=== PATIENT | male | born 1965 | race Caucasian/White ===

== ENCOUNTER 2018-09-22 22:05 | Inpatient (IN) | payer MEDICARE ==
[~2018-09-22] VITALS: Ht 175.3 cm; Wt 67.4 kg
[2018-09-22] MEDS ORDERED: SODIUM CHLORIDE FLUSH 10ML SYR IVF ONE (23:00)
[2018-09-22] MEDS ORDERED: SODIUM CHLORIDE 0.9% 1,000 ML IV ONE (23:08)
[2018-09-22] MEDS ORDERED: PANTOPRAZOLE 80 MG in SODIUM CHLORIDE 0.9% 100 ML IV SCH (23:08)
[2018-09-22] MEDS ORDERED: OCTREOTIDE 500 MCG in SODIUM CHLORIDE 0.9% 249 ML IV PRN (23:08)
[2018-09-22 23:10] LABS: BASOPHILS # (AUTO) 0.01 x10^3/uL (0-0.1); BASOPHILS % (AUTO) 0 % (0-1); EOSINOPHILS % (AUTO) 0 % (1-7); LYMPHOCYTES # (AUTO) 0.51 x10^3/uL (1-3.4); LYMPHOCYTES % (AUTO) 4 % (22-44); MD NO; MEAN CORPUSCULAR HEMOGLOBIN 33.9 pg (27.5-34.5); MEAN CORPUSCULAR HGB CONC 33.7 g/dL (33.2-36.2); MEAN CORPUSCULAR VOLUME 100.6 fL (81-97); MEAN PLATELET VOLUME 7.1 fL (7.4-10.4); MONOCYTES # (AUTO) 0.76 x10^3/uL (0.2-0.8); MONOCYTES % (AUTO) 5 % (2-9); NEUTROPHILS # (AUTO) 13.15 x10^3/uL (1.8-6.8); NEUTROPHILS % (AUTO) 91 % (42-75); PLATELET COUNT 280 x10^3/uL (130-400); RED BLOOD COUNT 4.71 x10^6/uL (4.38-5.82); RED CELL DISTRIBUTION WIDTH 14.6 % (9.4-14.8)
[2018-09-22] MEDS ORDERED: ONDANSETRON 2MG/ML, 2ML ONE (23:16)
[2018-09-22] MEDS ORDERED: MORPHINE SULFATE 4 MG/ML, 1ML ONE (23:17)
[2018-09-22 23:22] LABS: ALANINE AMINOTRANSFERASE 44 U/L (12-78); ALBUMIN 3.1 g/dL (3.4-5.0); ANION GAP 7 mmol/L (5-15); CALCIUM 8.1 mg/dL (8.5-10.1); CHLORIDE 97 mmol/L (98-107); CREATININE 3.79 mg/dL (0.7-1.3)
[2018-09-22 23:25] LABS: ALKALINE PHOSPHATASE 54 U/L (45-117); BILIRUBIN,TOTAL 0.6 mg/dL (0.2-1.0); TOTAL PROTEIN 6.7 g/dL (6.4-8.2)
[2018-09-22] MEDS ORDERED: ONDANSETRON 2MG/ML, 2ML IVPush ONE (23:30)
[2018-09-22] MEDS: MORPHINE SULFATE 4 MG/ML, 1ML IVPush PRN (23:36)
[2018-09-22 23:47] LABS: INTERNATIONAL NORMALIZED RATIO 0.94 (0.93-1.1)
[2018-09-23] MEDS ORDERED: SODIUM CHLORIDE 0.9% 1,000ML IVBOLUS ONE
--- NOTE | 2018-09-23 00:03 | NUR ---
pt upright on gurney awake & calm, watching TV, responds approp to staff, NAD, comfort measures provided, call light within reach.
--- NOTE | 2018-09-23 00:22 | NUR ---
report given to Mykel
--- NOTE | 2018-09-23 00:22 | NUR ---
received report from NIA Simons
--- NOTE | 2018-09-23 00:30 | NUR ---
another IVF hung 1 liter bolus.
[2018-09-23] MEDS ORDERED: LORazepam 2 MG/ML, 1ML ONE (00:33)
[2018-09-23] MEDS ORDERED: LORazepam 2 MG/ML, 1ML IVPush ONE (01:00)
--- NOTE | 2018-09-23 01:11 | NUR ---
Dr. Lockhart at bedside.
[2018-09-23] MEDS ORDERED: POLYETHYLENE GLYCOL 17 GM PACKET PO PRN (01:30)
[2018-09-23] MEDS ORDERED: ONDANSETRON 2MG/ML, 2ML IVPush PRN (01:30)
[2018-09-23] MEDS ORDERED: DOCUSATE 100 MG CAPSULE PO PRN (01:30)
[2018-09-23] MEDS ORDERED: morphine SULFATE 10 MG/ML, 1ML IVPush PRN (01:30)
[2018-09-23] MEDS ORDERED: BISACODYL 10 MG SUPP PR PRN (01:30)
[2018-09-23] MEDS ORDERED: LABETALOL 5MG/ML, 20ML IVPush PRN (01:30)
[2018-09-23] MEDS ORDERED: PROMETHAZINE 25 MG/ML, 1ML IM PRN (01:30)
[2018-09-23] MEDS ORDERED: ONDANSETRON ODT 4 MG PO PRN (01:30)
[2018-09-23] MEDS ORDERED: hydrALAzine 20 MG/ML, 1ML IVPush PRN (01:30)
--- NOTE | 2018-09-23 01:35 | NUR ---
lay out technician at bedside.
[2018-09-23 02:26] LABS: HEMOGLOBIN A1C 5.6 % (4.2-6.3)
[2018-09-23 02:29] LABS: FREE T4 (FREE THYROXINE) 0.95 ng/dL (0.76-1.46); THYROID STIMULATING HORMONE 0.189 mIU/L (0.358-3.740)
--- NOTE | 2018-09-23 02:47 | NUR ---
BREAK RN: PT UP TO BEDSIDE COMMODE WITH BOILER INSPECTOR ASSISTANCE.
--- NOTE | 2018-09-23 03:14 | NUR ---
patient placed on hospital bed and kept comfortable.
[2018-09-23] MEDS: SODIUM CHLORIDE 0.9% 1,000 ML IV SCH ×5 (03:22→19:48)
[2018-09-23 03:31] LABS: BASOPHILS # (AUTO) 0.03 x10^3/uL (0-0.1); BASOPHILS % (AUTO) 0 % (0-1); EOSINOPHILS # (AUTO) 0.01 x10^3/uL (0-0.4); EOSINOPHILS % (AUTO) 0 % (1-7); LYMPHOCYTES # (AUTO) 1.24 x10^3/uL (1-3.4); LYMPHOCYTES % (AUTO) 9 % (22-44); MD NO; MEAN CORPUSCULAR HEMOGLOBIN 34.5 pg (27.5-34.5); MEAN CORPUSCULAR HGB CONC 34.3 g/dL (33.2-36.2); MEAN CORPUSCULAR VOLUME 100.5 fL (81-97); MEAN PLATELET VOLUME 7.4 fL (7.4-10.4); MONOCYTES # (AUTO) 1.01 x10^3/uL (0.2-0.8); MONOCYTES % (AUTO) 8 % (2-9); NEUTROPHILS # (AUTO) 11.24 x10^3/uL (1.8-6.8); NEUTROPHILS % (AUTO) 83 % (42-75); PLATELET COUNT 255 x10^3/uL (130-400); RED BLOOD COUNT 4.34 x10^6/uL (4.38-5.82); RED CELL DISTRIBUTION WIDTH 14.9 % (9.4-14.8)
[2018-09-23] MEDS ORDERED: MORPHINE SULFATE 4 MG/ML, 1ML ONE ×2 (03:36→11:14)
[2018-09-23 03:41] LABS: ALANINE AMINOTRANSFERASE 38 U/L (12-78); ALBUMIN 2.9 g/dL (3.4-5.0); ANION GAP 8 mmol/L (5-15); CALCIUM 7.5 mg/dL (8.5-10.1); CHLORIDE 102 mmol/L (98-107); CREATININE 3.79 mg/dL (0.7-1.3)
[2018-09-23] MEDS: MORPHINE SULFATE 4 MG/ML, 1ML IVPush PRN ×3 (03:42→20:06)
[2018-09-23 03:44] LABS: ALKALINE PHOSPHATASE 49 U/L (45-117); BILIRUBIN,TOTAL 0.6 mg/dL (0.2-1.0); TOTAL PROTEIN 6.1 g/dL (6.4-8.2)
--- NOTE | 2018-09-23 03:49 | NUR ---
patient c/o abdominal and back pain. re-medicated for pain. patient alert and oriented. no bloody stool or vomiting noted.
--- NOTE | 2018-09-23 04:45 | NUR ---
patient sleeping. respiration unlabored. no vomiting noted. VSS
--- NOTE | 2018-09-23 05:49 | NUR ---
no changes. patient sleeping. VSS.
--- NOTE | 2018-09-23 06:58 | NUR ---
SBAR HAND-OFF REPORT RECEIVED FROM NIA CHAMBERS. ASSUMING CARE OF PATIENT.
--- NOTE | 2018-09-23 07:00 | NUR ---
PT SLEEPING AT THIS TIME. TELEVISION ON LOW VOLUME. CHEST RISE AND FALL OBSERVED. PATIENT IN NO DISTRESS. VS WNL AND PATIENT IN NORMAL SINUS RHYTHM ON NET TRAINER.
[2018-09-23] MEDS ORDERED: OXYcodone IR 5MG TABLET ONE ×2 (07:55→09:12)
[2018-09-23] MEDS: OXYcodone IR 5MG TABLET PO PRN ×2 (08:00→09:13)
--- NOTE | 2018-09-23 09:48 | NUR ---
SBAR HAND-OFF REPORT GIVEN TO NIA GOMES.
--- NOTE | 2018-09-23 09:49 | NUR ---
REPORT FROM NIA NAVARRO. ASSUMED CARE OF PATIENT AT THIS TIME. PATIENT RESTING QUIETLY ON GURNEY, WATCHING TV, NADN. A+OX4.
[2018-09-23] MEDS ORDERED: PANTOPRAZOLE 80 MG in SODIUM CHLORIDE 0.9% 100 ML IV SCH (11:10)
--- NOTE | 2018-09-23 11:34 | NUR ---
PATIENT HAVING 7/10 ABD PAIN, MORPHINE ADMINISTERED PER MD PRN ORDER. PROTONIX ADMINISTERED PER NOV. [facility] VS UPDATED IN CHART. NO ADDITIONAL NEEDS AT THIS TIME, NO BEDS AVAILABLE AT THIS TIME.
--- NOTE | 2018-09-23 11:45 | NUR ---
GI AT BEDSIDE FOR EGD. Addendum: 09/23/18 at 1240 by RASHID SEE PROCEDURAL SEDATION/PROCEDURE SHEET IN CHART BY MOLLY.
[2018-09-23] MEDS ORDERED: PROPOFOL 10 MG/ML, 20ML ONE (11:53)
[2018-09-23 12:28] LABS: ANION GAP 10 mmol/L (5-15); CHLORIDE 104 mmol/L (98-107); CREATININE 4.26 mg/dL (0.7-1.3)
--- NOTE | 2018-09-23 12:38 | NUR ---
DR MALONE COMPLETED PROCEDURE, PATIENT A+OX4. VS UPDATED IN PATIENT'S CHART. PATIENT LEVEL OF CARE CHANGED TO MEDICAL, AWAITING BED ASSIGNMENT. PATIENT SITTING COMFORTABLY IN [place], OCTREOTIDE STOPPED/DC'D PER DR HOPKINS'S VERBAL ORDER, IVF ADMINISTERED PER DR HOPKINS VERBAL ORDER. AWAITING ORDERS. NO NEEDS PER PATIENT. NADN.
[2018-09-23] MEDS ORDERED: THIAMINE 100MG TABLET ONE (13:10)
--- NOTE | 2018-09-23 13:15 | NUR ---
DR MCCALL, PER DIEM NURSE, AT BEDSIDE.
[2018-09-23] MEDS: THIAMINE 100MG TABLET PO SCH ×2 (13:16→19:47)
--- NOTE | 2018-09-23 13:28 | NUR ---
REPORT TO NIA NAVARRO.
--- NOTE | 2018-09-23 14:29 | NUR ---
SBAR TELEPHONE HAND-OFF REPORT TO NIA TEJADA. PT READY TO GO TO HOSPITAL ROOM.
[2018-09-23 15:05] VITALS: BP 144/91
[2018-09-23 18:53] LABS: MICROSCOPIC NOT IND
[2018-09-23] MEDS: PANTOPROZOLE 40MG TABLET PO SCH (19:47)
[2018-09-23] MEDS: NICOTINE 21 MG/24 HR PATCH.TD24 TD SCH (19:47)
[2018-09-23 19:56] VITALS: BP 160/98
[2018-09-23] MEDS ORDERED: OCTREOTIDE 500 MCG in SODIUM CHLORIDE 0.9% 249 ML IV PRN (23:08)
[2018-09-24] MEDS: MORPHINE SULFATE 4 MG/ML, 1ML IVPush PRN ×4 (00:12→21:45)
[2018-09-24 00:14] VITALS: BP 134/82
[2018-09-24] MEDS: SODIUM CHLORIDE 0.9% 1,000 ML IV SCH ×2 (04:13→13:44)
[2018-09-24] MEDS: PANTOPROZOLE 40MG TABLET PO SCH ×2 (04:39→21:45)
[2018-09-24 05:18] LABS: BASOPHILS # (AUTO) 0.04 x10^3/uL (0-0.1); BASOPHILS % (AUTO) 0 % (0-1); EOSINOPHILS # (AUTO) 0.04 x10^3/uL (0-0.4); EOSINOPHILS % (AUTO) 0 % (1-7); LYMPHOCYTES # (AUTO) 1.54 x10^3/uL (1-3.4); LYMPHOCYTES % (AUTO) 14 % (22-44); MD NO; MEAN CORPUSCULAR HEMOGLOBIN 34.6 pg (27.5-34.5); MEAN CORPUSCULAR HGB CONC 33.8 g/dL (33.2-36.2); MEAN CORPUSCULAR VOLUME 102.4 fL (81-97); MEAN PLATELET VOLUME 7.6 fL (7.4-10.4); MONOCYTES # (AUTO) 0.82 x10^3/uL (0.2-0.8); MONOCYTES % (AUTO) 7 % (2-9); NEUTROPHILS # (AUTO) 8.65 x10^3/uL (1.8-6.8); NEUTROPHILS % (AUTO) 78 % (42-75); PLATELET COUNT 263 x10^3/uL (130-400); RED BLOOD COUNT 4.47 x10^6/uL (4.38-5.82); RED CELL DISTRIBUTION WIDTH 15.3 % (9.4-14.8)
[2018-09-24 05:27] LABS: CHLORIDE 104 mmol/L (98-107)
[2018-09-24 05:35] LABS: ALANINE AMINOTRANSFERASE 34 U/L (12-78); ALBUMIN 3.2 g/dL (3.4-5.0); ALKALINE PHOSPHATASE 56 U/L (45-117); ANION GAP 12 mmol/L (5-15); BILIRUBIN,TOTAL 0.6 mg/dL (0.2-1.0); CHOL/HDL RATIO 1.8; CHOLESTEROL, TOTAL 168 mg/dL (140-239); CREATININE 4.12 mg/dL (0.7-1.3); HDL CHOL % 55 % (26-37); HDL CHOLESTEROL (DIRECT) 92 mg/dL (40-60); LDL CHOLESTEROL,CALCULATED 58 mg/dL (54-169); LDL/HDL RATIO 0.6 (0.5-3.0); TRIGLYCERIDES 90 mg/dL (50-200); VLDL CHOLESTEROL 18 mg/dL (0-25)
[2018-09-24 07:47] VITALS: BP 171/103
[2018-09-24] MEDS: THIAMINE 100MG TABLET PO SCH ×2 (09:53→21:36)
[2018-09-24] MEDS ORDERED: HYDROmorphone 1 MG/ML, 1ML IV ONE (10:00)
[2018-09-24] MEDS ORDERED: HYDROmorphone 2 MG/ML, 1ML ONE (10:14)
[2018-09-24] MEDS: SODIUM BICARBONATE 650 MG TABLET PO SCH ×3 (11:54→21:36)
[2018-09-24 14:01] VITALS: BP 149/102
[2018-09-24] MEDS: NICOTINE 21 MG/24 HR PATCH.TD24 TD SCH (17:29)
[2018-09-24 19:35] VITALS: BP 132/79
[2018-09-25 01:58] VITALS: BP 135/78
[2018-09-25] MEDS: MORPHINE SULFATE 4 MG/ML, 1ML IVPush PRN ×3 (04:35→15:08)
[2018-09-25 04:40] LABS: BASOPHILS # (AUTO) 0.06 x10^3/uL (0-0.1); BASOPHILS % (AUTO) 1 % (0-1); EOSINOPHILS # (AUTO) 0.07 x10^3/uL (0-0.4); EOSINOPHILS % (AUTO) 1 % (1-7); LYMPHOCYTES # (AUTO) 1.43 x10^3/uL (1-3.4); LYMPHOCYTES % (AUTO) 17 % (22-44); MD NO; MEAN CORPUSCULAR HEMOGLOBIN 34.3 pg (27.5-34.5); MEAN CORPUSCULAR HGB CONC 33.6 g/dL (33.2-36.2); MEAN PLATELET VOLUME 7.3 fL (7.4-10.4); MONOCYTES # (AUTO) 0.85 x10^3/uL (0.2-0.8); MONOCYTES % (AUTO) 10 % (2-9); NEUTROPHILS # (AUTO) 6.03 x10^3/uL (1.8-6.8); NEUTROPHILS % (AUTO) 72 % (42-75); PLATELET COUNT 294 x10^3/uL (130-400); RED BLOOD COUNT 4.31 x10^6/uL (4.38-5.82); RED CELL DISTRIBUTION WIDTH 14.8 % (9.4-14.8)
[2018-09-25 04:46] LABS: ALBUMIN 2.9 g/dL (3.4-5.0); ANION GAP 8 mmol/L (5-15); CALCIUM 8.5 mg/dL (8.5-10.1); CHLORIDE 104 mmol/L (98-107)
[2018-09-25 04:51] LABS: ALANINE AMINOTRANSFERASE 27 U/L (12-78); ALKALINE PHOSPHATASE 49 U/L (45-117); BILIRUBIN,TOTAL 0.9 mg/dL (0.2-1.0); TOTAL PROTEIN 6.5 g/dL (6.4-8.2)
[2018-09-25] MEDS: PANTOPROZOLE 40MG TABLET PO SCH ×2 (05:22→20:25)
[2018-09-25 07:53] VITALS: BP 133/85
[2018-09-25] MEDS: THIAMINE 100MG TABLET PO SCH ×2 (09:40→20:24)
[2018-09-25] MEDS: CEFTRIAXONE PMX 2GM/50ML 50 ML IV SCH (09:40)
[2018-09-25] MEDS: SODIUM BICARBONATE 650 MG TABLET PO SCH (09:40)
[2018-09-25] MEDS: METRONIDAZOLE PMX 500MG/100ML 100 ML IV SCH ×2 (10:50→16:52)
[2018-09-25 15:26] VITALS: BP 138/82
[2018-09-25] MEDS: NICOTINE 21 MG/24 HR PATCH.TD24 TD SCH (16:52)
[2018-09-25 19:51] VITALS: BP 153/83
[2018-09-26] MEDS: MORPHINE SULFATE 4 MG/ML, 1ML IVPush PRN ×2 (00:21→08:07)
[2018-09-26] MEDS: METRONIDAZOLE PMX 500MG/100ML 100 ML IV SCH ×2 (00:52→09:33)
[2018-09-26 01:07] VITALS: BP 150/87
[2018-09-26 06:31] LABS: CALCIUM 8.1 mg/dL (8.5-10.1); CREATININE 0.93 mg/dL (0.7-1.3)
[2018-09-26 06:35] LABS: ANION GAP 7 mmol/L (5-15); CHLORIDE 106 mmol/L (98-107)
[2018-09-26 07:55] VITALS: BP 150/91
[2018-09-26] MEDS: PANTOPROZOLE 40MG TABLET PO SCH (07:59)
[2018-09-26] MEDS: CEFTRIAXONE PMX 2GM/50ML 50 ML IV SCH (07:59)
[2018-09-26] MEDS: THIAMINE 100MG TABLET PO SCH (07:59)
[2018-09-26] MEDS ORDERED: NICO-487 TD (10:34)
[2018-09-26] MEDS ORDERED: THIA100T67 PO (10:34)
[2018-09-26] MEDS ORDERED: CEFD300C37 PO (10:34)
[2018-09-26] MEDS ORDERED: TAMS-11 PO (10:34)
[2018-09-26] MEDS ORDERED: METR500T PO (10:34)
[2018-09-26] MEDS ORDERED: ONDA4TAB13 PO (10:34)
[2018-09-26] MEDS ORDERED: FINA5TAB4 PO (10:34)
[2018-09-26] MEDS ORDERED: LACT1TAB13 PO (10:34)
[2018-09-26] MEDS ORDERED: PANT40TA5 PO (10:34)
[2018-09-26] MEDS ORDERED: FOLI-17 PO (10:34)
[2018-09-26] MEDS ORDERED: HYDROmorphone 2 MG/ML, 1ML ONE (12:06)
[2018-09-26] MEDS ORDERED: HYDROmorphone 2 MG/ML, 1ML IM ONE (12:30)
[2018-09-26 13:15] VITALS: BP 136/88
== END 2018-09-26 13:54 | disposition home or self-care (01) | DRG 380 ==
LOC: ED 09-23 → EDIP 09-23 00:05 → 3NE 09-23 14:47
PROVIDERS: ADMIT Internal Medicine; ATTEND Internal Medicine
PROC: 0DJ08ZZ Inspection of Upper Intestinal Tract, Via Natural or Artificial Opening Endoscopic (ICD-10-PCS; principal; 2018-09-23 11:45)
PROC: 0T9B70Z Drainage of Bladder with Drainage Device, Via Natural or Artificial Opening (ICD-10-PCS; 2018-09-24)
DX: K22.11 Ulcer of esophagus with bleeding (principal); N17.0 Acute kidney failure with tubular necrosis; R65.10 Systemic inflammatory response syndrome (SIRS) of non-infectious origin without acute organ dysfunction; E44.1 Mild protein-calorie malnutrition; E87.1 Hypo-osmolality and hyponatremia; R18.8 Other ascites; D64.9 Anemia, unspecified; D75.89 Other specified diseases of blood and blood-forming organs; E87.5 Hyperkalemia; F10.10 Alcohol abuse, uncomplicated; F12.10 Cannabis abuse, uncomplicated; F17.210 Nicotine dependence, cigarettes, uncomplicated; Z86.711 Personal history of pulmonary embolism
CPT/HCPCS: 36415; 76700; 80048; 80053; 80061; 80307; 81003; 82306; 82436; 82570; 82607; 83036; 83690; 83735; 84100; 84133; 84156; 84300; 84439; 84443; 85014; 85018; 85025; 85610; 85730; 86850; 86900; 96365; 96375; 99291; G0378; J0696; J1170; J2354; J2405; C9113; J2060; J2270; J7030; J7050